=== PATIENT | female | born 1955 | race Caucasian/White ===

== ENCOUNTER 2022-12-28 13:16 | Outpatient (CLI) | payer BC | END 2022-12-28 13:17 | disposition home or self-care (01) | LOC: BICMAMMO 13:16 | PROVIDERS: ATTEND Internal Medicine | DX: Z12.31 Encounter for screening mammogram for malignant neoplasm of breast (principal) | CPT/HCPCS: 77063; 77067 ==

== ENCOUNTER 2025-04-20 08:00 | Outpatient (CLI) | payer BC, SELFPAY ==
[2025-04-20 13:24] LABS: #Basophils 0.03 10x3/uL (0.0-0.2); #Eosinophils 0.05 10x3/uL (0.0-0.7); #Monocytes 0.66 10x3/uL (0.11-0.59); #Neutrophils 3.56 10x3/uL (1.40-6.50); %Basophils 0.5 % (0.0-1.0); %Eosinophils 0.8 % (0.0-10.0); %Lymphocytes 31.4 % (21.0-51.0); %Monocytes 10.5 % (0.0-10.0); %Neutrophils 56.5 % (42.0-75.0); Hematocrit 38.9 % (36.0-47.0); Hemoglobin 12.6 g/dL (12.0-16.0); Mean Corpuscular Hemoglobin 30.0 pg (27.0-31.0); Mean Corpuscular Volume 92.6 fL (78.0-98.0); Platelet Count 197 10x3/uL (130-400); Red Blood Cell (RBC) Count 4.20 mill/uL (4.20-5.40); White Blood Cell (WBC) Count 6.30 10x3/uL (4.8-10.8)
[2025-04-20 13:40] LABS: INR-International Normal Ratio 1.0; Prothrombin Time 13.0 sec (12.0-14.7)
[2025-04-20 13:49] LABS: Anion Gap 11 mmol/L (10-20); BUN (Urea Nitrogen) 22 mg/dL (9.8-20.1); Calc. Creatinine Clearance 0 mL/min (70-130); Calcium 9.3 mg/dL (7.8-10.44); Carbon Dioxide 27 mmol/L (23-31); Chloride 106 mmol/L (98-107); Glucose 89 mg/dL (80-115); Potassium 4.2 mmol/L (3.5-5.1); Sodium 140 mmol/L (136-145)
== END 2025-04-20 12:58 | disposition home or self-care (01) ==
LOC: LABBT 08:00
PROVIDERS: ATTEND Orthopaedic Surgery
DX: Z01.818 Encounter for other preprocedural examination (principal)
CPT/HCPCS: 80048; 85025; 85610; 87081; 93005; 93010

== ENCOUNTER 2025-04-20 11:54 | Outpatient (CLI) | payer SELFPAY | END 2025-04-20 11:55 | disposition home or self-care (01) | LOC: CT 11:54 | PROVIDERS: ATTEND Orthopaedic Surgery | DX: Z01.818 Encounter for other preprocedural examination (principal); M17.11 Unilateral primary osteoarthritis, right knee ==

== ENCOUNTER 2025-04-27 05:34 | Observation (INO) | payer BC ==
[2025-04-20 11:07] VITALS: BMI 24.4
[2025-04-27] MEDS ORDERED: Vancomycin 1 GM/200 ML (FROZEN) BAG ONE (06:16)
[2025-04-27] MEDS ORDERED: Tranexamic Acid 1,000 MG/10 ML VIAL ONE (06:16)
[2025-04-27] MEDS ORDERED: fentaNYL PF 100 MCG/2 ML SYRINGE ONE ×2 (06:26→09:23)
[2025-04-27] MEDS ORDERED: Ondansetron PF 4 MG/2 ML Vial ONE ×2 (06:27→06:49)
[2025-04-27] MEDS ORDERED: Lidocaine 2% 6 ML (Jelly) SYR ONE (06:27)
[2025-04-27] MEDS ORDERED: Lidocaine 1% PF 5 ML VIAL ONE (06:27)
[2025-04-27] MEDS ORDERED: PROPOFOL 20 ML ONE (06:27)
[2025-04-27] MEDS ORDERED: Bupivacaine 0.25% HCL 30 ML VIAL ONE (06:33)
[2025-04-27] MEDS ORDERED: Scopolamine 1 mg/72 hour Patch ONE (06:49)
[2025-04-27] MEDS ORDERED: CEFAZOLIN 2 GM VIAL ONE (06:57)
[2025-04-27] MEDS ORDERED: SUCCINYLCHOLINE/SOD CL,ISO/PF 200 MG/10 ML SYRINGE FS ONE (07:07)
[2025-04-27] MEDS ORDERED: Rocuronium Bromide 10 MG/ML (10ML VIAL) ONE (07:07)
[2025-04-27] MEDS ORDERED: PROPOFOL 60 ML ONE (07:25)
[2025-04-27] MEDS ORDERED: diphenhydrAMINE 50 MG/ML VIAL ONE (07:31)
[2025-04-27] MEDS ORDERED: PHENYLEPHRINE-NS 100 MCG/ML 10 ML SYRINGE ONE (07:46)
[2025-04-27] MEDS ORDERED: Lidocaine 1% (PF) 30 ML VIAL ONE (07:58)
[2025-04-27] MEDS ORDERED: Ropivacaine 0.5% HCl/PF (150 MG/30 ML VIAL) ONE (07:58)
[2025-04-27] MEDS ORDERED: Ondansetron PF 4 MG/2 ML Vial IVP PRN ×2 (08:00→08:55)
[2025-04-27] MEDS ORDERED: Ropivacaine 0.2% 550 ML 550 ML NERVE BLCK SCH (08:00)
[2025-04-27] MEDS ORDERED: HYDROcodone/Acetaminophen 10/325 mg Tablet PO PRN (08:00)
[2025-04-27] MEDS ORDERED: PROPOFOL 40 ML ONE (08:20)
[2025-04-27] MEDS ORDERED: diphenhydrAMINE 25 MG CAP PO PRN (08:55)
[2025-04-27] MEDS ORDERED: Acetaminophen 325 MG TAB PO PRN (08:55)
[2025-04-27] MEDS ORDERED: Non-Formulary Item 1 EACH (Cholecalciferol (Vitamin D3) [Vitamin D3] 50 MCG Capsule) PO SCH (09:00)
[2025-04-27] MEDS ORDERED: Non-Formulary Item 1 EACH (Magnesium Oxide [Magnesium] 400 MG Tablet) PO SCH (09:00)
[2025-04-27] MEDS ORDERED: PROPYLENE GLYCOL EA EYE SCH (09:00)
[2025-04-27] MEDS ORDERED: Ketorolac Tromethamine 30 MG (1 mL) VIAL ONE (09:23)
[2025-04-27] MEDS ORDERED: HYDROmorphone 0.5 MG/0.5 ML SYRINGE ONE (10:04)
[2025-04-27] MEDS: Aspirin 81 mg Enteric Coated Tablet PO SCH (12:38)
[2025-04-27] MEDS: Multivitamin W/ Minerals 1 TAB PO SCH (12:39)
[2025-04-27] MEDS: Senokot S 8.6-50 MG TAB PO SCH (12:39)
[2025-04-27] MEDS: Ferrous Gluconate 324 MG TAB PO SCH (12:39)
[2025-04-27] MEDS: Ketorolac Tromethamine 30 MG (1 mL) VIAL IVP SCH ×2 (13:07→15:28)
[2025-04-27] MEDS: HYDROcodone/Acetaminophen 10/325 mg Tablet PO PRN (13:55)
[2025-04-27] MEDS: PNEUMOC 20-VAL CONJ-DIP CRM/PF 0.5 ML SYRINGE IM ONE (15:41)
[2025-04-27] MEDS: FLU (Fluad Triv) 25-26 (65UP)PF 45 MCG/0.5 ML Syringe IM ONE (15:41)
[2025-04-27] MEDS: Polyethylene Glycol OPTH DROP 15 ML BOT EA EYE SCH (21:09)
[2025-04-28 05:26] LABS: Hematocrit 32.4 % (36.0-47.0); Hemoglobin 10.8 g/dL (12.0-16.0); Mean Corpuscular Hemoglobin 30.2 pg (27.0-31.0); Mean Corpuscular Volume 90.5 fL (78.0-98.0); Platelet Count 167 10x3/uL (130-400); Red Blood Cell (RBC) Count 3.58 mill/uL (4.20-5.40); White Blood Cell (WBC) Count 13.91 10x3/uL (4.8-10.8)
[2025-04-28] MEDS: Magnesium Oxide 400 MG TAB PO SCH (09:58)
[2025-04-28] MEDS: Cholecalciferol 1,000 UNITS (25 MCG) TAB PO SCH (09:58)
[2025-04-28 13:38] VITALS: BP 105/64; TEMP 97.7
== END 2025-04-28 13:41 | disposition home or self-care (01) ==
LOC: SDC 05:34 → SURG A 11:04 → SDC 15:01 → SURG A 15:01
PROVIDERS: ADMIT Orthopaedic Surgery; ATTEND Orthopaedic Surgery
PROC: 0SRC0JZ Replacement of Right Knee Joint with Synthetic Substitute, Open Approach (ICD-10-PCS; principal; 2025-04-27)
PROC: 3E0T3BZ Introduction of Anesthetic Agent into Peripheral Nerves and Plexi, Percutaneous Approach (ICD-10-PCS; 2025-04-27)
DX: M17.11 Unilateral primary osteoarthritis, right knee (principal); Z98.41 Cataract extraction status, right eye; Z98.42 Cataract extraction status, left eye; Z90.710 Acquired absence of both cervix and uterus
CPT/HCPCS: 0055T; 27447; 64448; 36415; 85027; A4306; C1713; C1776; C1889; J0169; J0665; J1100; J1171; J1200; J1885; J2003; J2250; J2405; J2704; J2795; J3010; J3373